=== PATIENT | female | born 1995 | race Two or more races ===

== ENCOUNTER 2017-07-26 21:59 | Emergency (ER) | payer MEDICAID ==
[~2017-07-26] VITALS: Ht 154.9 cm; Wt 81.6 kg
--- NOTE | 2017-07-26 22:35 | NUR ---
Dr Turk at bedside for assessment and evaluation
[2017-07-26] MEDS ORDERED: predniSONE 10 MG TABLET PO ONE (22:45)
[2017-07-26] MEDS ORDERED: ALBUTEROL SULFATE 2.5 MG/3 ML NEBU NEB ONE (22:45)
[2017-07-26] MEDS ORDERED: IPRATROPIUM BROMIDE 0.5 MG/2.5 ML NEBU NEB ONE (22:45)
[2017-07-26] MEDS ORDERED: ALBUTEROL SULFATE 2.5 MG/3 ML NEBU ONE (22:48)
[2017-07-26] MEDS ORDERED: IPRATROPIUM BROMIDE 0.5 MG/2.5 ML NEBU ONE (22:48)
--- NOTE | 2017-07-26 22:53 | NUR ---
Galileo, RT at bedside for breathing treatments
[2017-07-26] MEDS ORDERED: predniSONE 10 MG TABLET ONE (22:56)
[2017-07-26] MEDS ORDERED: predniSONE 50 MG TABLET ONE (22:56)
[2017-07-26 23:01] LABS: BASOPHILS # (AUTO) 0.1 K/uL (0.0-8.0); BASOPHILS % (AUTO) 0.8 % (0.0-2.0); EOSINOPHILS # (AUTO) 0.3 K/uL (0.0-0.7); EOSINOPHILS % (AUTO) 3.8 % (0.0-7.0); HEMATOCRIT 36.5 % (31.2-41.9); HEMOGLOBIN 12.2 g/dL (10.9-14.3); LYMPHOCYTES # (AUTO) 2.3 K/uL (20.0-40.0); LYMPHOCYTES % (AUTO) 31.2 % (20.5-51.5); MEAN CORPUSCULAR HEMOGLOBIN 27.4 uug (24.7-32.8); MEAN CORPUSCULAR HGB CONC 34 g/dL (32.3-35.6); MONOCYTES # (AUTO) 0.5 K/uL (2.0-10.0); MONOCYTES % (AUTO) 7.1 % (0.0-11.0); NEUTROPHILS # (AUTO) 4.3 K/uL (1.8-8.9); NEUTROPHILS % (AUTO) 57.1 % (38.5-71.5); PLATELET COUNT (AUTO) 300 K/uL (179-408); RED BLOOD CELL COUNT(AUTO) 4.45 MIL/uL (3.63-4.92); WHITE BLOOD COUNT (AUTO) 7.5 K/uL (3.8-11.8)
--- NOTE | 2017-07-26 23:05 | NUR ---
Breathing treatment complete. Patient states, "I feel a lot better."
[2017-07-26 23:11] LABS: ALANINE AMINOTRANSFERASE 22 U/L (14-59); ALKALINE PHOSPHATASE 124 U/L (50-136); ASPARTATE AMINOTRANSFERASE 16 U/L (15-37); BILIRUBIN,DIRECT < 0.1 mg/dL (0.0-0.2); BILIRUBIN,TOTAL 0.1 mg/dL (0.2-1.0); CARBON DIOXIDE 29 mmol/L (21-32); CHLORIDE 105 mmol/L (98-107); CREATININE 0.8 mg/dL (0.6-1.3); GLUCOSE 102 mg/dL (74-106); POTASSIUM 3.7 mmol/L (3.5-5.1); TOTAL PROTEIN, SERUM 7.7 g/dL (6.4-8.2); UREA NITROGEN, BLOOD 13 mg/dL (7-18)
[2017-07-27] VITALS: BP 124/76
--- NOTE | 2017-07-27 00:01 | NUR ---
Patient discharged to home in stable conditon. Written and verbal after care instructions given. Patient verbalizes understanding of instructions.
== END 2017-07-27 00:02 | disposition home or self-care (01) ==
LOC: ER 22:02
DX: N92.0 Excessive and frequent menstruation with regular cycle (principal); J45.909 Unspecified asthma, uncomplicated
CPT/HCPCS: 36415; 76856; 80048; 80076; 84703; 85025; 85730; 94640; 99285; A4663; J3590; J7512 ×2

== ENCOUNTER 2018-03-12 01:33 | Emergency (ER) | payer SELFPAY ==
[~2018-03-12] VITALS: Ht 154.9 cm; Wt 79.4 kg
[2018-03-12] MEDS ORDERED: ALBU8HFA4 (01:49)
--- NOTE | 2018-03-12 01:52 | NUR ---
PT A/OX4, RESPONSIVE TO VERBAL AND TACTILE STIMULI. PT C/O ABD PAIN THAT STARTED ~3 WEEKS AGO, PRESSURE PAIN, DOES NOT RADIATE, 10/10, CONSTANT. UPON ASSESSMENT, ABD NON-DISTENDED, ABD SOUNDS ACTIVE IN ALL QUADRANTS, SOFT TO TOUCH. PER PT, ABD IS NON-TENDER. PER PT, ABD PAIN IS BURNING IN PAIN AND WORSENED AFTER EATING WITH ONSET OF NAUSEA. AT NIGHT TIME, PAIN IS PRESSURE-LIKE IN QUALITY. PT DENIES C/P, SOB, N/V/D, DIZZINESS, HEADACHE. VSS. PT IS IN BED, BED IN LOW AND LOCKED POSITION WITH BILATERAL SIDERAILS UP.
--- NOTE | 2018-03-12 02:00 | NUR ---
TYLOR ABRAHAM AT BEDSIDE.
[2018-03-12] MEDS ORDERED: KETOROLAC TROMETHAMINE 15 MG INJ IV ONE (02:15)
[2018-03-12 02:22] LABS: *BILIRUBIN,URIN NEGATIVE (NEGATIVE); *BLOOD, URINE NEGATIVE (NEGATIVE); *CLARITY,URINE SLIGHTLY CLOUDY (CLEAR); *COLOR,URINE YELLOW (YELLOW); *KETONES,URINE NEGATIVE (NEGATIVE); *PROTEIN,URINE NEGATIVE (NEGATIVE); *UROBILINOGEN,URINE 0.2 E.U./dl (NORMAL); LEUKOCYTE ESTERASE ,URINE NEGATIVE (NEGATIVE); NITRITE, URINE NEGATIVE (NEGATIVE); UGLUCOSE NEGATIVE (NEGATIVE)
[2018-03-12 02:31] LABS: BASOPHILS # (AUTO) 0.1 K/uL (0.0-8.0); BASOPHILS % (AUTO) 0.6 % (0.0-2.0); EOSINOPHILS # (AUTO) 0.1 K/uL (0.0-0.7); EOSINOPHILS % (AUTO) 1.4 % (0.0-7.0); HEMATOCRIT 39.8 % (31.2-41.9); HEMOGLOBIN 13.2 g/dL (10.9-14.3); LYMPHOCYTES # (AUTO) 2.4 K/uL (20.0-40.0); LYMPHOCYTES % (AUTO) 30.1 % (20.5-51.5); MEAN CORPUSCULAR HGB CONC 33 g/dL (32.3-35.6); MEAN CORPUSCULAR VOLUME 78.4 fL (75.5-95.3); MONOCYTES # (AUTO) 0.7 K/uL (2.0-10.0); NEUTROPHILS # (AUTO) 4.6 K/uL (1.8-8.9); NEUTROPHILS % (AUTO) 58.9 % (38.5-71.5); PLATELET COUNT (AUTO) 299 K/uL (179-408); RED BLOOD CELL COUNT(AUTO) 5.07 MIL/uL (3.63-4.92); WHITE BLOOD COUNT (AUTO) 7.9 K/uL (3.8-11.8)
[2018-03-12 02:34] LABS: BACTERIA,URINE FEW /HPF (NONE SEEN); MUCUS,URINE MODERATE /LPF (0-FEW); RBC,URINE 0-3 /HPF (0-3); SQUAMOUS EPITHELIAL CELL,UR MANY /HPF (NONE SEEN); WBC,URINE 0-3 /HPF (0-3)
[2018-03-12 02:37] LABS: *URINE HCG, QUAL NEGATIVE (NEGATIVE)
[2018-03-12] MEDS ORDERED: KETOROLAC TROMETHAMINE 30 MG INJ ONE (02:40)
--- NOTE | 2018-03-12 02:46 | NUR ---
US TECH AT BEDSIDE.
[2018-03-12 02:48] LABS: BILIRUBIN,DIRECT 0.1 mg/dL (0.0-0.2); BILIRUBIN,TOTAL 0.3 mg/dL (0.2-1.0); CREATININE 0.9 mg/dL (0.6-1.3); POTASSIUM 3.9 mmol/L (3.5-5.1); TOTAL PROTEIN, SERUM 8.2 g/dL (6.4-8.2)
--- NOTE | 2018-03-12 04:07 | NUR ---
TYLOR ABRAHAM AT BEDSIDE FOR PT UPDATE.
--- NOTE | 2018-03-12 04:35 | NUR ---
DPatient discharged to home in stable conditon. Written and verbal after care instructions given. Patient verbalizes understanding of instructions. PT D/C W/ PRESCRIPTION. ALL BELONGINGS W/ PT. PIV ACCESS REMOVED. PT SELF-AMBULATED WITHOUT DIFFICULTY.
[2018-03-12 04:36] VITALS: BP 130/71
== END 2018-03-12 04:37 | disposition home or self-care (01) ==
LOC: ER 01:37
DX: R10.13 Epigastric pain (principal); R10.11 Right upper quadrant pain; J45.909 Unspecified asthma, uncomplicated
CPT/HCPCS: 36415; 83690; 84703; 85025; A4663; J1885

== ENCOUNTER 2019-06-09 16:01 | Emergency (ER) | payer SELFPAY ==
[~2019-06-09] VITALS: Ht 154.9 cm; Wt 74.8 kg
[~2019-06-09 16:01] MED LIST: ALBU8HFA4
--- NOTE | 2019-06-09 16:39 | NUR ---
Patient discharged to home in stable conditon. Written and verbal after care instructions given. Patient verbalizes understanding of instructions.pt walks in steady gait.
== END 2019-06-09 16:40 | disposition home or self-care (01) ==
LOC: ER 16:01
DX: J20.9 Acute bronchitis, unspecified (principal); J45.909 Unspecified asthma, uncomplicated; Z79.899 Other long term (current) drug therapy
CPT/HCPCS: A4663

== ENCOUNTER 2019-06-19 08:56 | Emergency (ER) | payer SELFPAY ==
[~2019-06-19] VITALS: Ht 154.9 cm; Wt 74.8 kg
--- NOTE | 2019-06-19 09:08 | NUR ---
Dr Steward at the bedside for MSE.
[2019-06-19] MEDS ORDERED: predniSONE 10 MG TABLET PO ONE (09:15)
[2019-06-19] MEDS ORDERED: ALBUTEROL SULFATE 2.5 MG/3 ML NEBU NEB ONE (09:15)
[2019-06-19] MEDS ORDERED: IPRATROPIUM BROMIDE 0.5 MG/2.5 ML NEBU NEB ONE (09:15)
[2019-06-19] MEDS ORDERED: predniSONE 10 MG TABLET ONE (09:16)
[2019-06-19] MEDS ORDERED: predniSONE 50 MG TABLET ONE (09:16)
[2019-06-19] MEDS ORDERED: ALBUTEROL SULFATE 2.5 MG/3 ML NEBU ONE (09:19)
[2019-06-19] MEDS ORDERED: IPRATROPIUM BROMIDE 0.5 MG/2.5 ML NEBU ONE (09:19)
--- NOTE | 2019-06-19 10:24 | NUR ---
Patient is resting comfortably in bed with eyes closed, NAD noted.
[2019-06-19 10:57] VITALS: BP 110/71
--- NOTE | 2019-06-19 10:58 | NUR ---
Patient discharged to home in stable conditon. Written and verbal after care instructions given. Patient verbalizes understanding of instructions.
== END 2019-06-19 10:57 | disposition home or self-care (01) ==
LOC: ER 08:58
DX: J45.909 Unspecified asthma, uncomplicated (principal); Z79.899 Other long term (current) drug therapy
CPT/HCPCS: 71045; 94640; 99283; J7512 ×2; A4663; J3590

== ENCOUNTER 2020-06-12 15:21 | Emergency (ER) | payer MEDICAID ==
[~2020-06-12] VITALS: Ht 154.9 cm; Wt 79.4 kg
--- NOTE | 2020-06-12 15:30 | NUR ---
Pt came in for suture removal. MD at bedside
--- NOTE | 2020-06-12 15:39 | NUR ---
Sutures removed, reviewed d/c instruction. pt d/c to slef home.
[2020-06-12 15:41] VITALS: BP 122/68
== END 2020-06-12 15:43 | disposition home or self-care (01) ==
LOC: ER 15:21
DX: S01.311D Laceration without foreign body of right ear, subsequent encounter (principal); X58.XXXD Exposure to other specified factors, subsequent encounter; J45.909 Unspecified asthma, uncomplicated
CPT/HCPCS: A4663

== ENCOUNTER 2023-07-27 16:15 | Emergency (ER) | payer SELFPAY ==
[~2023-07-27] VITALS: Ht 154.9 cm; Wt 86.2 kg
[2023-07-27] MEDS ORDERED: IBUP-1955 PO (16:49)
[2023-07-27] MEDS ORDERED: BENZ-13 PO (16:49)
[2023-07-27 18:26] VITALS: BP 126/81; O2SAT 97
== END 2023-07-27 18:26 | disposition home or self-care (01) ==
LOC: ER 16:18
DX: J06.9 Acute upper respiratory infection, unspecified (principal); R05.9 Cough, unspecified; R09.81 Nasal congestion; J04.0 Acute laryngitis; J45.909 Unspecified asthma, uncomplicated; Z79.899 Other long term (current) drug therapy; Z98.890 Other specified postprocedural states
CPT/HCPCS: 71045; A4606; A4663